=== PATIENT | male | born 1950 | race Caucasian/White ===

== ENCOUNTER → 2020-10-23 15:28 | Outpatient (BNVA) | payer OTHER, SELFPAY | PROVIDERS: Family Provider Electrodiagnostic Medicine; PCP Family Medicine; Visit Provider Internal Medicine Critical Care Medicine | DX: Z01.812 Encounter for preprocedural laboratory examination (principal); R91.1 Solitary pulmonary nodule | CPT/HCPCS: 87635 ==

== ENCOUNTER 2020-10-27 10:21 | Day surgery (SDC) | payer OTHER, SELFPAY ==
[2020-10-26 09:26] VITALS: BMI 26.4
[2020-10-27 10:40] VITALS: BP 135/80; PULSE 82; RESP 18; TEMP 36.6; O2SAT 93
--- NOTE | 2020-10-27 11:23 | ANES.PREANE2 ---
Pre-Anesthetic Assessment Pre-Anesthetic Assessment: Height/Weight: Height 1.85 m Weight 90.718 kg Temp Pulse Resp BP Pulse Ox 97.9 F 82 18 135/80 93 10/27/20 10:40 10/27/20 10:40 10/27/20 10:40 10/27/20 10:40 10/27/20 10:40 Preop Diagnosis: Mediastinal lymphadenopathy Proposed Procedure: Operation Date: 10/27/20 12:00 Proposed Procedures p Ebus [id number] R91.1(Not Applicable) - Raf Ingram MD Was Beta Mike taken within 24 hours: N/A Last intake: Intake Last Liquid Date 10/26/20 Last Liquid Time 21:00 Last Solid Date 10/26/20 Last Solid Time 18:00 Social: Social History: Alcohol (H/o ETOH abuse) and Tobacco (h/o smoking) Exam: Pre-Anes Outpt Exam: alert, oriented x 3, clear to auscultation bilaterally and regular rate & rhythm Airway: Submandibular: WNL Cervical ROM: WNL MP: 2 Additional comments: upper edentulous, missing several on lower Pulmonary: Pulmonary: COPD Comments: lung CA GI: GI: GERD Anesthetic Plan: ASA status: 3 Anesthesia: General Risk of > 500 ml blood loss (7ml/kg in children): No PFSH Anesthesia PFSH: Medical History (Updated 09/07/20 @ 13:20 by Raf Ingram MD) GERD (gastroesophageal reflux disease) Hyperlipemia Lung nodule Surgical History H/O eye surgery Family History Other Cancer Social History Smoking and tobacco status: former smoker Quit status (tobacco): has quit using tobacco Year quit tobacco: 2006 - Hx of 2PPD x 40Y Second hand smoke exposure: No Alcohol intake: never Lives independently: Yes Household members: spouse Marital status: Current occupational status: retired History of recent travel: No Current gender identity: Male Data Anesthesia Cardiac Studies: No Data to Display
[2020-10-27] MEDS: sodium chloride 0.9% 1,000 ML 30 ML IV (12:22)
--- NOTE | 2020-10-27 12:32 | W.PM.OPSFHP ---
Same Day Surgery H&P Indication for Procedure/HPI DATE OF PROCEDURE: October 27, 2020 CHIEF COMPLAINT/INDICATIONFOR SURGICAL PROCEDURE: PET Positive midsternal hilar lymphadenopathy PREOP DIAGNOSIS: Mediastinal lymphadenopathy PLANNED PROCEDRUE: Bronchoscopy with inspection of the airway, possible endobronchial biopsies, bronchoalveolar lavage, endobronchial ultrasound-guided transbronchial needle aspiration of lymph nodes and control of bleeding Operation Date: 10/27/20 12:00 Proposed Procedures p Ebus [id number] R91.1(Not Applicable) - Raf Ingram MD Is a 70-year-old gentleman that I had evaluated in the office for lung nodule. The patient had a recent PET scan performed which revealed PET positive hilar and mediastinal lymphadenopathy. Medications/Allergies* Home Medications Medication Instructions Recorded Confirmed Type epinephrine 0.3 mg/0.3 mL 0.3 mg IM Q10M PRN 08/03/20 10/26/20 History injection, auto-injector omeprazole 20 mg capsule,delayed 20 mg PO DAILY 08/03/20 10/27/20 History release rosuvastatin 40 mg tablet 20 mg PO DAILY tab 08/03/20 10/27/20 History Allergies/Adverse Reactions Allergy/AdvReac Type Severity Reaction Status Date / Time codeine Allergy Severe ADR-Nausea Verified 10/27/20 10:31 insect venom Allergy Severe ALGY-Swell Verified 10/27/20 10:31 Lip/Tongue/Throat Sulfa (Sulfonamide Allergy Severe ALGY-Rash Verified 10/27/20 10:31 Antibiotics) Current Medications: Generic Name Dose Route Start Last Admin Trade Name Freq PRN Reason Stop Dose Admin Sodium Chloride 1,000 mls @ 30 mls/hr 10/27/20 11:00 10/27/20 12:22 Sodium Chloride 0.9% IV 10/28/20 10:59 30 mls/hr .Q24H HAILY Administration Pertinent History/Comorbid Conditions* Medical History (Updated 09/07/20 @ 13:20 by Raf Ingram MD) GERD (gastroesophageal reflux disease) Hyperlipemia Lung nodule Surgical History (Updated 08/03/20 @ 12:19 by Raf Ingram MD) H/O eye surgery Family History (Updated 08/03/20 @ 11:36 by Jane Colmenares LPN) Cancer Social History Smoking and tobacco status: former smoker Quit status (tobacco): has quit using tobacco Year quit tobacco: 2006 - Hx of 2PPD x 40Y Second hand smoke exposure: No Alcohol intake: never Lives independently: Yes Household members: spouse Marital status: Current occupational status: retired History of recent travel: No Current gender identity: Male Pertinent Exam Findings alert, oriented x 3, clear to auscultation bilaterally and regular rate & rhythm Recommendations Surgery/Procedure today Coding Level of Care Code Acute Automation And Controls Supervisor for Amaya Doss
[2020-10-27 13:53] VITALS: BP 120/63; PULSE 73; RESP 18; TEMP 36.6; O2SAT 92
[2020-10-27 13:55] VITALS: PULSE 70; RESP 12; O2SAT 96
[2020-10-27 14:00] VITALS: BP 122/75; PULSE 74; RESP 15; TEMP 36.6; O2SAT 95
--- NOTE | 2020-10-27 14:02 | PM.OP ---
Operative Report Date of procedure: October 27, 2020 Pre-op Diagnosis: Mediastinal lymphadenopathy Post-op diagnosis: same Brief History: This is a 70-year-old gentleman with PET positive medicine unhygienic adenopathy coming in for bronchoscopic evaluation. Procedure: Name of the procedure: Bronchoscopy with inspection of the airway, bronchoalveolar lavage, endobronchial biopsies, endobronchial ultrasound-guided transbronchial needle aspiration of lymph nodes and control of bleeding. Indication: PET positive medicine hilar lymphadenopathy Anesthesia: General anesthesia. Local anesthesia: The vocal cords, trachea, armando and the right and left mainstem bronchi were anesthetized with 1% lidocaine, 3 mL. Description of the procedure: The procedure was explained to the patient and the consent was obtained. The patient was brought to the OR. The patient underwent laryngeal mask airway placement for general anesthesia. Following induction of general anesthesia, the bronchoscope was advanced through the LMA. The vocal cords appeared normal. The vocal cords were anesthetized with 1% lidocaine, 3 mL of lidocaine was used. The lower trachea appeared to be mildly erythematous, no endotracheal lesion was seen. The armando was sharp. The armando, the right and left mainstem bronchi are anesthetized with 1% lidocaine. In a systematic manner bilateral bronchial tree was then examined. The bronchoscope was advanced into the left mainstem bronchus. The left upper lobe, lingula and left lower lobe bronchi were examined up to the third subsegmental level and no abnormalities were identified. There is no endobronchial lesion, active bleeding or mucous plug. The bronchoscope was then introduced into the right mainstem bronchus. The right upper lobe, and right middle lobe up to the third subsegmental level and no abnormalities were identified. A smooth endobronchial lesion was identified at the entrance of the anterior segment of the right lower lobe. There was mild airway anthracosis throughout. Bronchoalveolar lavage was performed from the medial segment of the right middle lobe. 60 mL of saline was instilled, fluid return was 15 mL. The fluid was cloudy. Endobronchial biopsies were performed from right lower lobe. The endobronchial ultrasound was introduced through the ET tube. Mediastinal and hilar lymphadenopathy was identified with the ultrasound. The fine-needle aspiration was performed from station 7 lymph node. Samples: 1. Bronchoalveolar lavage specimen was sent for Gram stain and culture, fungal stain and culture, AFB stain and culture. 2. The endobronchial biopsies are sent for histopathology. 3. The transbronchial needle aspiration of the aforementioned lymph node group was sent for histopathology. 1 sample was also sent for AFB and fungal culture. Complications: There was no immediate complications. Immediate pathologic evaluation revealed granulomatous inflammation. There is no evidence of malignancy.
[2020-10-27 14:50] VITALS: BP 100/65; PULSE 72; RESP 18
[2020-10-27 15:22] VITALS: BP 122/75; PULSE 78; RESP 18; TEMP 36.6; O2SAT 95
--- NOTE | 2020-10-27 16:28 | ANE.PACU2 ---
Inpatient post-anesthesia follow up: Airway intact: Yes Vital signs: Temperature 97.8 F Pulse Rate 78 Respiratory Rate 18 Blood Pressure 122/75 Pulse Oximetry 95 Oxygen Delivery Me thod Room Air Oxygen Flow Rate 6 Fraction of Inspir ed Oxygen Hydration adequate: Yes Nausea and vomiting: No Pain level: 1 Mental status: Baseline
== END 2020-10-27 15:10 | disposition home or self-care (01) ==
PROVIDERS: PCP Family Medicine; Visit Provider Internal Medicine Critical Care Medicine
PROC: BB4BZZZ Ultrasonography of Pleura (ICD-10-PCS; principal; 2020-10-27 12:00)
DX: R59.1 Generalized enlarged lymph nodes (principal); R91.1 Solitary pulmonary nodule; J44.9 Chronic obstructive pulmonary disease, unspecified; Z85.118 Personal history of other malignant neoplasm of bronchus and lung; K21.9 Gastro-esophageal reflux disease without esophagitis; E78.5 Hyperlipidemia, unspecified; Z87.891 Personal history of nicotine dependence
CPT/HCPCS: 31625; 31627; 80500; 87015; 87070; 87077; 87102; 87116; 87176; 87205; 87206; 87801; 88305; J1100; J2405; J3010; J3490; J7030

== ENCOUNTER 2020-12-18 09:34 | Outpatient (CLI) | payer MEDICARE, OTHER, SELFPAY ==
--- NOTE | 2020-12-18 11:22 | ECG_ITS ---
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 Measurements Intervals [place] Rate: 68 P: 68 RI: 190 QRS: -32 QRSD: 104 T: 33 QT: 363 QTc: 388 Interpretive Statements SINUS RHYTHM MARKED LEFT AXIS DEVIATION [QRS AXIS < -30] INTERPRETATION BASED ON A DEFAULT AGE OF 40 YEARS No previous ECG available for comparison Electronically Signed On 12-20-2020 10:55:29 CDT by Jennifer Zhang M.D. [id number] f
== END 2020-12-18 09:35 | disposition home or self-care (01) ==
LOC: RT 09:43
PROVIDERS: PCP Family Medicine; Visit Provider Specialist
DX: C44.01 Basal cell carcinoma of skin of lip (principal); R94.31 Abnormal electrocardiogram [ECG] [EKG]
CPT/HCPCS: 93005

== ENCOUNTER 2020-12-30 13:36 | Outpatient (CLI) | payer MEDICARE, OTHER, SELFPAY | END 2020-12-30 13:37 | disposition home or self-care (01) | LOC: LAB 13:39 | PROVIDERS: PCP Family Medicine; Visit Provider Specialist | DX: C44.1191 Basal cell carcinoma of skin of left upper eyelid, including canthus (principal); K13.0 Diseases of lips | CPT/HCPCS: 88304; 88305 ==

== ENCOUNTER 2021-08-03 13:24 | Outpatient (CLI) | payer MEDICARE, OTHER, SELFPAY ==
[2021-08-03 13:34] VITALS: BP 124/74; PULSE 95; RESP 18; TEMP 36.6; O2SAT 90
--- NOTE | 2021-08-03 14:08 | PC.NURSE ---
Pt's O2 was between 89% and 93%. Emi Vital called hospitalist Dr. Perrin. He came to assess the pt. The infusion was given. Dr. Perrin ordered a pulse ox to go home with the pt. This was obtained by Emi from the ED.
[2021-08-03 14:10] VITALS: BP 128/74; PULSE 84; RESP 20; O2SAT 89
[2021-08-03 15:12] VITALS: BP 120/72; PULSE 85; RESP 20; TEMP 38; O2SAT 90
== END 2021-08-03 13:25 | disposition home or self-care (01) ==
PROVIDERS: PCP Electrodiagnostic Medicine; Visit Provider Electrodiagnostic Medicine
DX: U07.1 COVID-19 (principal)
CPT/HCPCS: 96365

== ENCOUNTER 2021-08-03 20:10 | Emergency (ER) | payer MEDICARE, OTHER, SELFPAY ==
--- NOTE | 2021-08-03 20:14 | XRR_ITS ---
PROCEDURE INFORMATION: Exam: XR Chest Exam date and time: 08/03/2021 8:14 PM Age: 70 years old Clinical indication: Shortness of breath; Additional info: SOB TECHNIQUE: Imaging protocol: XR of the chest. Views: 1 view. COMPARISON: CT chest w con* [id number] 08/04/2020 10:34 AM FINDINGS: Lungs: Decreased inspiration. Interval development of interstitial and alveolar opacities in the periphery of the lungs bilaterally, more pronounced in the lower lobes. Pleural spaces: No pleural effusion. No pneumothorax. Heart/Mediastinum: Stable mild enlargement of the cardiac silhouette. Mediastinal contours are unremarkable. Bones/joints: Unremarkable for age. XR/XR chest 1V portable [id number] IMPRESSION: 1. Decreased inspiration. Interval development of interstitial and alveolar opacities in the periphery of the lungs bilaterally, more pronounced in the lower lobes. Findings are suspicious for pneumonia, including atypical and viral organisms. 2. Incidental/nonacute findings are listed in the report. Radiation Dose CTDIVOL = (mGy): DLP = (mGy-cm)
[2021-08-03 20:35] VITALS: BP 147/77; PULSE 98; RESP 18; TEMP 37.3; O2SAT 92; BMI 36.9
[2021-08-03 21:12] LABS: ABG PCO2 39.7 mmHg (35-45); ABG PH Result 7.48 (7.35-7.45); Arterial Blood Gas Hematocrit 46.8 % (42-52); Base Excess ABG 5.2 mmol/L (-2.0-2.0); Blood Gas Allen Test Pos; Blood Gas Sample Site Radial, left; Blood Gas Sample Type Arterial; HCO3 ABG 29.2 mmol/L (22-26); Oxygen Device NC; PO2 ABG 71.4 mmHg (80.0-100.0)
--- NOTE | 2021-08-03 21:55 | ED_ITS ---
HPI - General Adult General: Chief complaint: Shortness of Breath/Dyspnea Stated complaint: Covid + O2 Levels Low Time Seen by Provider: 08/03/21 21:00 History of Present Illness: HPI narrative: CC: Shortness of breath, fever and generalized weakness HPI: This is a [70]yo patient w/ hx of COPD presenting to the ED with malaise, generalized weakness, cough and dyspnea since coming down with COVID on Monday (6 days ago). Today, patient received medical antibody treatments reports continues to have low oxygen sat and came to the emergency room for evaluation. Since onset of symptoms, has had some shortness of breath and decreased PO intake. NO recent travel. Endorses no sick contacts around. Denies vomiting/diarrhea. Denies chest pain, diaphoresis, other GI or complaints. Denies any pleuritic chest pain, recent surgery/immobilization/travel, or hematemesis or hx of VTE in the past. Onset: 6 days ago Duration: ongoing for the last 6 days Location: home Severity: moderate Review of Systems Narrative: Constitutional: +subjective fever, +generalized weakness HEENT: No vision changes CV: No chest pain, no palpitations PULM: +cough, +dyspnea. GI: No abdominal pain, no N/V/D. : No dysuria MSKEL: No muscle pain SKIN: No new rashes, no lesions. NEURO: No headache, no focal weakness. HEME: No visible bruises PSYCH: Normal mood PFSH ED PFSH: Medical History (Updated 08/03/21 @ 21:31 by Jarret Norton MD) GERD (gastroesophageal reflux disease) Hyperlipemia Lung nodule Surgical History H/O eye surgery Family History Other Cancer Social History Smoking and tobacco status: former smoker Quit status (tobacco): has quit using tobacco Year quit tobacco: 2005 - Hx of 2PPD x 40Y Second hand smoke exposure: No Alcohol intake: never Lives independently: Yes Household members: spouse Marital status: Current occupational status: retired History of recent travel: No Current gender identity: Male Physical Exam Narrative: EXAM NARRATIVE: Head: Atraumatic Eyes: PERRL, conjunctiva without injection ENT: Mucous membrane moist NECK: Supple without lymphadenopathy LUNGS: Coarse lung sounds, tachypnea, no crackles/wheezes/rhonchi on exam CV: RRR ABDOMEN: Soft, nontender EXTREMITY: Normal ROM SKIN: No rash or erythema NEURO: Awake and alert. No focal motor deficits. PSYCH: Normal mood and affect. Course Vital Signs: Vital signs: Vital Signs Temperature 99.1 F 08/03/21 20:35 Pulse Rate 91 08/03/21 22:13 Respiratory Rate 20 H 08/03/21 22:13 Blood Pressure 150/88 08/03/21 22:13 Pulse Oximetry 85 L 08/03/21 22:34 MDM - General Adult MDM Narrative: Medical decision making narrative: [70]yo patient presenting to the ED with shortness of breath, cough, and malaise concerning for pneumonia with findings of fever, coarse breath sounds, hypxoemia in the setting of a known covid diagnosis.. Workup today includes XR chest Defer lab work at this time given that the patient is well appearing with stable vital signs and without recent hospitalization or care facility stay. Given History, Exam, and Workup presentation most consistent with pneumonia.Presentation not consistent with PE, COPD exacerbation, Pneumothorax, TB, Atypical ACS, Esophageal Rupture, Toxic Exposure, Foreign Body Airway Obstruction. Workup: CXR Chest, covid labs Intervention: Tylenol 1gram, PO challenge, serial reassessment, oxygen, decadron, home oxygen [10:24pm] On reassessment, XR findings of ground-glass opacity. Findings consistent with COVID. Afebrile currently. Patient continues to sat at 94% on 5L oxygen. Given concerns for possible respiratory decompensation, I have offered patient admission for serial/close observation in the emergency room. At [10:30pm], patient declined admission citing strong desire to go home on home oxygen. I have discussed the risks of leaving hospital today including risks of sudden pulmonary decompensation leading to severe respiratory distress and even . Patient verbalizes understanding the consequence of the risks of leaving the hospital today and alternative including staying for serial observation. Given patient's strong desire to go home, I have offered patient outpatient oxygen tank/supply and portable pulse ox with proper instruction to use at home. Patient agrees to monitor oxygen saturation and to come back to the ED if there is any drops in pulse ox reading despite oxygen use. In addition, I have given patient strict follow up with Dr. Castillo in 24-48 hrs for reevalutaion. Patient verbalizes understanding of all components of our discussion today and reassures me of follow up with PCP and close monitoring. Given pulse ox to use and given instruction return if worse. Patient will go home with portable home O2 at 5L. Disposition: Discharge. Patient is given strict return precautions for any worsening dypsnea, changes in pulse ox numbers, any worsening fatigue, dehydration, generalized weakness, altered mental status, or any new or concerning issues. Lab Data: Labs: Lab Results 08/03/21 08/03/21 08/03/21 20:14 22:00 22:00 WBC 12.9 10^3/uL H 10 ^3/uL (4.0-10.0) RBC 5.37 10^6/uL H 10 ^6/uL (4.1-5.3) Hgb 15.4 g/dL g/dL (11.7-16.6) Hct 47.7 % % (42.0-52.0) MCV 88.8 fl fl (80-94) MCH 28.7 pg pg (28.0-34.0) MCHC 32.3 g/dL g/dL (30.0-36.0) RDW 13.3 % % (12.1-15.1) Plt Count 156 10^3/cmm 10^3 /cmm (130-400) MPV 9.5 fL fL (7.4-10.4) Neut % (Auto) 83.0 % % Lymph % (Auto) 11.8 % % [place] % (Auto) 4.8 % % Eos % (Auto) 0.0 % % Baso % (Auto) 0.2 % % Neut # (Auto) 10.70 10^3/uL H 1 0^3/uL (1.8-7.7) Lymph # (Auto) 1.5 10^3/uL 10^3/ uL (0.8-4.8) [place] # (Auto) 0.6 10^3/uL 10^3/ uL (0.2-0.9) Eos # (Auto) 0.0 10^3/uL 10^3/ uL (0.0-0.8) Baso # (Auto) 0.0 10^3/uL 10^3/ uL (0.0-0.1) Nucleated RBC % (a uto) 0 % % Nucleated RBCs # 0.0 /100WBC /100W BC Specimen Type Arterial Sample Site Radial, left ABG pH 7.48 H (7.35-7.45) ABG pCO2 39.7 mmHg mmHg (35-45) ABG pO2 71.4 mmHg L mmHg (80.0-100.0) ABG HCO3 29.2 mmol/L H mmo l/L (22-26) ABG Base Excess 5.2 mmol/L H mmol /L (-2.0-2.0) Jim Test Pos Hematocrit 46.8 % % (42-52) O2 Delivery Device Nc O2 Liters/Min 3.0 % % Public Health Veterinarian ID [email or web address] Sodium 136 mmol/L mmol/L (136-145) Potassium 4.0 mmol/L mmol/L (3.5-5.1) Chloride 99 mmol/L mmol/L (98-107) Carbon Dioxide 22 mmol/L mmol/L (22-29) Anion Gap 19.0 (5-19) BUN 14 mg/dL mg/dL (8-23) Creatinine 0.7 mg/dL mg/dL (0.7-1.2) GFR Calculation Not Reportable Glucose 104 mg/dL mg/dL (65-115) Calculated Osmolal ity 283 mOsm/kg L mOs m/kg (285-295) Lactic Acid Calcium 7.8 mg/dL L mg/dL (8.5-10.5) Total Bilirubin 0.4 mg/dL mg/dL (0.15-1.2) AST 32 U/L U/L (0-40) ALT 26 U/L U/L (0-41) Alkaline Phosphata se 64 IU/L IU/L (40-130) C-Reactive Protein 57.0 mg/L H mg/L (0.0-4.9) NT-Pro-B Natriuret Pep 80 pg/mL pg/mL (0-125) Total Protein 6.3 g/dL L g/dL (6.6-8.7) Albumin 3.5 g/dL g/dL (3.5-5.2) Globulin 2.8 g/dL g/dL (1.3-4.6) Procalcitonin 0.06 ng/mL ng/mL (0-0.5) 08/03/21 22:00 WBC RBC Hgb Hct MCV MCH MCHC RDW Plt Count MPV Neut % (Auto) Lymph % (Auto) [place] % (Auto) Eos % (Auto) Baso % (Auto) Neut # (Auto) Lymph # (Auto) [place] # (Auto) Eos # (Auto) Baso # (Auto) Nucleated RBC % (a uto) Nucleated RBCs # Specimen Type Sample Site ABG pH ABG pCO2 ABG pO2 ABG HCO3 ABG Base Excess Jim Test Hematocrit O2 Delivery Device O2 Liters/Min Public Health Veterinarian ID Sodium Potassium Chloride Carbon Dioxide Anion Gap BUN Creatinine GFR Calculation Glucose Calculated Osmolal ity Lactic Acid 1.4 mmol/L mmol/L (0.5-2.2) Calcium Total Bilirubin AST ALT Alkaline Phosphata se C-Reactive Protein NT-Pro-B Natriuret Pep Total Protein Albumin Globulin Procalcitonin Imaging Data^: Other Imaging: Radiologist's impression: [address] [id number] ReportSigned Patient: Khushi Pond #: [id number]: 1950Acct#:[id number]/Sex: 70 / MADM Date: 08/03/21Loc: ERRoom/Bed:Attending Dr: Ordering Provider/Ordering MD: Marcia Alvarez MD Date of Service: 08/03/21 Procedure(s): XR chest 1V portable [id number] Accession Number(s): [id number] Report Number: [id number] PROCEDURE INFORMATION: Exam: XR Chest Exam date and time: 08/03/2021 8:14 PM Age: 70 years old Clinical indication: Shortness of breath; Additional info: SOB TECHNIQUE: Imaging protocol: XR of the chest. Views: 1 view. COMPARISON: CT chest w con* [id number] 08/04/2020 10:34 AM FINDINGS: Lungs: Decreased inspiration. Interval development of interstitial and alveolar opacities in the periphery of the lungs bilaterally, more pronounced in the lower lobes. Pleural spaces: No pleural effusion. No pneumothorax. Heart/Mediastinum: Stable mild enlargement of the cardiac silhouette. Mediastinal contours are unremarkable. Bones/joints: Unremarkable for age. XR/XR chest 1V portable [id number] IMPRESSION: 1. Decreased inspiration. Interval development of interstitial and alveolar opacities in the periphery of the lungs bilaterally, more pronounced in the lower lobes. Findings are suspicious for pneumonia, including atypical and viral organisms. 2. Incidental/nonacute findings are listed in the report. Radiation Dose CTDIVOL = (mGy): DLP = (mGy-cm) Dictated By:Sabra David MDSigned By:Sabra David MDSigned Date/Time:08/03/21 2203DD/ 13 Discharge Plan Discharge Patient Disposition: Home Clinical Impression: 2019 novel coronavirus-infected pneumonia (NCIP), Cough, Dyspnea Condition: Stable Prescriptions: New acetaminophen 500 mg tablet 500 mg PO Q6H PRN (Reason: pain) 5 Days Qty: 20 RF: 0 No Action rosuvastatin 40 mg tablet 20 mg PO DAILY RF: 0 epinephrine 0.3 mg/0.3 mL auto-injector 0.3 mg IM Q10M PRN (Reason: Allergic Reaction) RF: 0 omeprazole 20 mg capsule,delayed release(DR/EC) 20 mg PO DAILY RF: 0 tamsulosin 0.4 mg Capsule 0.4 mg PO DAILY RF: 0 Discharge Orders: Discharge ED (Routine); Ordered 08/03/21 Ordered By: Jarret Norton Other Ambulatory Orders: DME: Oxygen (Order) Location: None Selected Ordered By: Jarret Norton Referrals: Silviano Castillo DO [Primary Care Provider] - Discharge Diet: Advance as tolerated Discharge Activity: Resume usual activity Patient Instructions: COVID-19 (Coronavirus Disease 2019) (ED) Activity Restrictions/Additional Instructions: Come back to the emergency room if your symptoms worsen, have any shortness of breath, fever/chills, dehydration, inability tolerate p.o., any difficulty breathing, or any new or concerning complaints. Please return the emergency room if your pulse ox reads less than 88% on 5L of oxygen setting. Please use your home oxygen. Follow-up with Dr. Castillo in the next 48 to 72 hours for reassessment. Come back to the emergency room if there is any new or concerning complaints Coding Level of Care Code ED Application Design Engineer for Amaya Doss
[2021-08-03 22:08] LABS: Basophils % 0.2 %; Hematocrit 47.7 % (42.0-52.0); Hemoglobin 15.4 g/dL (11.7-16.6); Lymphocytes # 1.5 10^3/uL (0.8-4.8); Lymphocytes % 11.8 %; Mean Corpuscular HGB Conc 32.3 g/dL (30.0-36.0); Mean Corpuscular Hemoglobin 28.7 pg (28.0-34.0); Mean Corpuscular Volume 88.8 fl (80-94); Mean Platelet Volume 9.5 fL (7.4-10.4); Monocytes # 0.6 10^3/uL (0.2-0.9); Monocytes % 4.8 %; Nucleated Red Blood Cells % 0 %; Platelet Count 156 10^3/cmm (130-400); Red Blood Count 5.37 10^6/uL (4.1-5.3); Red Cell Distribution Width 13.3 % (12.1-15.1); White Blood Count 12.9 10^3/uL (4.0-10.0)
[2021-08-03 22:13] VITALS: BP 150/88; PULSE 91; RESP 20; O2SAT 94
[2021-08-03 22:29] LABS: Lactic Sepsis W/Reflex 1.4 mmol/L (0.5-2.2)
[2021-08-03 22:34] VITALS: O2SAT 85
[2021-08-03 22:41] LABS: NT Pro B Type Natriuretic Pept 80 pg/mL (0-125); Procalcitonin 0.06 ng/mL (0-0.5)
[2021-08-03 22:52] LABS: Alanine Aminotransferase 26 U/L (0-41); Albumin Level 3.5 g/dL (3.5-5.2); Alkaline Phosphatase 64 IU/L (40-130); Aspartate Amino Transferase 32 U/L (0-40); Blood Urea Nitrogen 14 mg/dL (8-23); Calcium 7.8 mg/dL (8.5-10.5); Carbon Dioxide 22 mmol/L (22-29); Chloride 99 mmol/L (98-107); Globulin 2.8 g/dL (1.3-4.6); Glucose 104 mg/dL (65-115); Osmolality Calculated 283 mOsm/kg (285-295); Sodium 136 mmol/L (136-145); Total Bilirubin 0.4 mg/dL (0.15-1.2); Total Protein 6.3 g/dL (6.6-8.7)
[2021-08-03 23:24] VITALS: BP 149/78; PULSE 94; RESP 20; O2SAT 94
== END 2021-08-03 23:28 | disposition home or self-care (01) ==
PROVIDERS: Emergency Medicine; Emergency Provider Emergency Medicine; PCP Electrodiagnostic Medicine
DX: U07.1 COVID-19 (principal); J12.82 Pneumonia due to coronavirus disease 2019; E78.5 Hyperlipidemia, unspecified; Z87.891 Personal history of nicotine dependence
CPT/HCPCS: 36600; 71045; 80053; 82803; 83605; 83880; 84145; 85025; 86140; 87040; 96365; 99283

== ENCOUNTER → 2022-12-15 10:29 | Outpatient (BNVA) | payer OTHER, SELFPAY | PROVIDERS: PCP Electrodiagnostic Medicine; Visit Provider Internal Medicine Pulmonary Disease | DX: R91.1 Solitary pulmonary nodule (principal); J43.9 Emphysema, unspecified; L92.9 Granulomatous disorder of the skin and subcutaneous tissue, unspecified; Z87.891 Personal history of nicotine dependence | CPT/HCPCS: 99214 ==

== ENCOUNTER 2023-01-04 12:37 | Outpatient (CLI) | payer OTHER, SELFPAY ==
[2023-01-04 12:55] VITALS: PULSE 91; RESP 18; O2SAT 96
[2023-01-04] MEDS: albuterol 2.5 mg/3 mL Neb INHALATION (12:55)
[2023-01-04 13:00] VITALS: PULSE 88
[2023-01-04 13:15] VITALS: BP 138/90; BP 159/95
== END 2023-01-04 12:38 | disposition home or self-care (01) ==
LOC: RT 12:40
PROVIDERS: PCP Electrodiagnostic Medicine; Visit Provider Internal Medicine Pulmonary Disease
DX: R06.02 Shortness of breath (principal)
CPT/HCPCS: 36415; 94060; 94618; 94726; 94729; J7613

== ENCOUNTER 2023-01-07 05:57 | Outpatient (CLI) | payer OTHER, SELFPAY ==
--- NOTE | 2023-01-07 10:30 | PETR_ITS ---
PROCEDURE INFORMATION: Exam: PET/CT Skull Base to Mid-thigh Exam date and time: 01/07/2023 10:45 AM Age: 72 years old Clinical indication: Condition or disease; Condition/disease: Lung nodule LABS AND CLINICAL REPORTS: Glucose: 96 mg/dl Treatment strategy for malignancy (PET staging): Initial Staging (PI) TECHNIQUE: Imaging protocol: Following at least four-hour fasting and following the injection of radiopharmaceutical, low dose CT images were obtained. Then, PET images were obtained. Attenuation corrected images were constructed using the CT scan. Fused images of PET and CT were reviewed. The standardized uptake values (SUV) reported below are maximum values within a region of interest, expressed in gm/ml. Exam includes orbital meatal line to mid-thigh. Radiopharmaceutical: 15.86 mCi F-18 FDG (Fluorodeoxyglucose), IV. Time of imaging post radiopharmaceutical administration: 1 hour Injection site: Left hand COMPARISON: PT PET Scan 10/03/2020 11:01 AM FINDINGS: Limitations: Metallic artifact in the pelvis related to a left hip prosthesis. Brain: Visualized brain has normal physiologic uptake. Paranasal sinuses: There is mild non radiotracer avid mucosal thickening in the left maxillary sinus. Pharynx: No abnormal uptake. Larynx: No abnormal uptake. Lungs, pleura and trachea: No abnormal uptake. Mild bilateral centrilobular emphysematous changes are present. There are calcified granulomas in the bilateral lower lobes.Mild dependent streaky density in the lungs is consistent with atelectasis. In the anterior medial right upper lobe (previously described as right middle lobe on the prior PET-CT report), a solid noncalcified 1.0 x 0.8 cm nodule on series 3, image 59 is not radiotracer avid. This nodule is similar in size compared with 10/28/2022 and the prior PET-CT. A nodule on the major fissure on the prior CT of 10/28/2022 is not definitively identified on the current exam. A was however present on the prior PET-CT with a similar size and lack of radiotracer uptake. Heart: Normal physiologic uptake. Mediastinal space: No abnormal uptake. Liver: No abnormal uptake. Gallbladder and bile ducts: No abnormal uptake. A stone in the gallbladder is noted. Pancreas: No abnormal uptake. Spleen: No abnormal uptake. Calcified granulomas in the spleen are present. Adrenal glands: No abnormal uptake. Kidneys and ureters: Normal physiologic uptake. Stomach and bowel: No abnormal uptake. There are scattered colonic diverticula. Vasculature: No abnormal uptake. There are diffuse atherosclerotic changes. Lymph nodes: Radiotracer avid mediastinal and bilateral hilar lymph nodes are similar in size compared to the previous examinations with decreased uptake. Examples: Inferior pretracheal space to the right of midline measuring 1.8 x 1.2 cm on series 3, image 54, SUV max 5.8 (previously 9.3); in the aortopulmonary window posteriorly measuring 1.6 x 1.1 cm on series 3, image 55, SUV max 6.1 (previously 6.0); in the right hilar region containing a punctate central calcification measuring 1 cm on series 3, image 59, SUV max 4.7 (previously 7.2) and in the left hilar region measuring approximately 1.3 cm in diameter on series 3, image 59, SUV max 6.3 (previously 7.8). These lymph nodes appears similar in size compared with 10/28/2022 and the prior PET-CT. Bones/joints: No abnormal uptake in the visualized axial and appendicular skeleton. Postoperative changes of left hip arthroplasty are noted. An ovoid non radiotracer avid sclerotic density in the left pubic bone is noted compatible with a benign bone island. [id number] diffuse degenerative vertebral body spondylosis is noted. Soft tissues: No abnormal uptake in the visualized head, neck, chest, abdomen, pelvis, and extremities. METRICS: Mediastinal blood pool: SUV max 2.5 [facility] [id number] IMPRESSION: 1. Similar size of a noncalcified right upper lobe nodule since at least the prior PET-CT of 10/03/2020 which continues to be non radiotracer avid. A second noncalcified nodule noted on the CT chest of 10/28/2022 was present on the prior PET-CT and was non radiotracer avid, not definitively assessed on the current study possibly related to motion artifact. No new nodules are identified. Assessment of small nodules can be limited by PET-CT. 2. Similar size of mildly prominent mediastinal and bilateral hilar lymph nodes which demonstrate persistent but decreased uptake suggestive of partially resolved inflammatory or infectious involvement. Neoplastic involvement cannot be entirely excluded. 3. Colonic diverticulosis. 4. Old granulomatous changes. 5. Cholelithiasis. 6. Additional nonurgent findings as detailed above.
== END 2023-01-07 05:58 | disposition home or self-care (01) ==
LOC: RAD 01-09 05:57
PROVIDERS: PCP Electrodiagnostic Medicine; Visit Provider Internal Medicine Pulmonary Disease
DX: R91.1 Solitary pulmonary nodule (principal)
CPT/HCPCS: 78815; A9552

== ENCOUNTER → 2023-02-24 10:51 | Outpatient (BNVA) | payer OTHER, SELFPAY | PROVIDERS: PCP Electrodiagnostic Medicine; Visit Provider Internal Medicine Pulmonary Disease | DX: R91.1 Solitary pulmonary nodule (principal); J43.9 Emphysema, unspecified; L92.9 Granulomatous disorder of the skin and subcutaneous tissue, unspecified; Z87.891 Personal history of nicotine dependence | CPT/HCPCS: 99214 ==

== ENCOUNTER → 2023-06-26 14:46 | Outpatient (BNVA) | payer OTHER, SELFPAY | PROVIDERS: PCP Electrodiagnostic Medicine; Visit Provider Internal Medicine Pulmonary Disease | DX: J43.9 Emphysema, unspecified (principal); R91.8 Other nonspecific abnormal finding of lung field; I89.8 Other specified noninfective disorders of lymphatic vessels and lymph nodes; Z87.891 Personal history of nicotine dependence | CPT/HCPCS: 99214 ==

== ENCOUNTER → 2023-12-06 13:05 | Outpatient (BNVA) | payer OTHER, SELFPAY | PROVIDERS: PCP Electrodiagnostic Medicine; Visit Provider Dermatology | DX: D48.5 Neoplasm of uncertain behavior of skin (principal); L57.0 Actinic keratosis; L85.3 Xerosis cutis; L82.1 Other seborrheic keratosis; D23.5 Other benign neoplasm of skin of trunk; Z85.828 Personal history of other malignant neoplasm of skin | CPT/HCPCS: 11102; 17000; 99203 ==

== ENCOUNTER → 2023-12-25 12:55 | Outpatient (BNVA) | payer OTHER, SELFPAY | PROVIDERS: PCP Electrodiagnostic Medicine; Visit Provider Internal Medicine Pulmonary Disease | DX: R91.1 Solitary pulmonary nodule (principal); J43.9 Emphysema, unspecified; L92.9 Granulomatous disorder of the skin and subcutaneous tissue, unspecified; Z87.891 Personal history of nicotine dependence | CPT/HCPCS: 99214 ==

== ENCOUNTER 2024-01-09 12:34 | Outpatient (CLI) | payer OTHER, SELFPAY ==
--- NOTE | 2024-01-09 07:47 | PETR_ITS ---
PROCEDURE INFORMATION: Exam: PET/CT Skull Base to Mid-thigh Exam date and time: 01/09/2024 1:06 PM Age: 73 years old Clinical indication: Condition or disease; Condition/disease: Pulmonary nodules; Additional info: F/u nodules LABS AND CLINICAL REPORTS: Glucose: 84 mg/dl Treatment strategy for malignancy (PET staging): Initial Staging (PI) TECHNIQUE: Imaging protocol: Following at least four-hour fasting and following the injection of radiopharmaceutical, low dose CT images were obtained. Then, PET images were obtained. Attenuation corrected images were constructed using the CT scan. Fused images of PET and CT were reviewed. The standardized uptake values (SUV) reported below are maximum values within a region of interest, expressed in gm/ml. Exam includes orbital meatal line to mid-thigh. Radiopharmaceutical: 10.56 mCi F-18 FDG (Fluorodeoxyglucose), IV. Time of imaging post radiopharmaceutical administration: 45 minutes Injection site: Right antecubital COMPARISON: 1. [id number] 01/07/2023 10:45 AM 2. PT PET Scan 10/03/2020 11:01 AM FINDINGS: Brain: Visualized brain has normal physiologic uptake. Pharynx: No abnormal uptake. Larynx: No abnormal uptake. Lungs, pleura and trachea: No abnormal uptake. 1.0 x 0.8 cm anterior right upper lobe nodule is stable from September 2020 and continues to show no FDG uptake. Developed 7 mm lingular nodule on axial image 97 of series 3 shows SUV max of 1.2. Just posterior to this is an area of low-level FDG uptake with SUV max of 1.[address] abnormality. Bilateral calcified granulomata. Mild bilateral atelectatic change. Heart: Normal physiologic uptake. Coronary arteries: Mild coronary artery calcification. Mediastinal space: No abnormal uptake. Liver: No abnormal uptake. Gallbladder and bile ducts: No abnormal uptake. Cholelithiasis. Pancreas: No abnormal uptake. Spleen: No abnormal uptake. Small splenic calcifications in keeping with sequela of old granulomatous disease. Adrenal glands: No abnormal uptake. Kidneys and ureters: Normal physiologic uptake. Stomach and bowel: No abnormal uptake. Colonic diverticulosis. Vasculature: No abnormal uptake. Ynhy-un-ieynxnwk systemic atherosclerotic calcification without aortic aneurysm. Lymph nodes: Redemonstrated FDG avid mediastinal and bilateral hilar lymph nodes shows stable size. Index right lower paratracheal node measures 1.8 x 1.1 cm on axial image 82 of series 3 with SUV max of 5.4, previously 5.8. Index AP window node measures 1.5 x 1.2 cm with SUV max of 4.1, previously 6.1. Index right hilar lymph node shows SUV max of 3.6, previously 4.7. Index left hilar lymph node shows SUV max 4.5, previously 6.3. Right peribronchial node measures 1.2 cm in the short axis with SUV max of 5.7, previously 6.1. Presumed lower periesophageal node shows SUV max of 4.2, previously 3.1 in January 2023 and 4.5 in September 2020. Bones/joints: No abnormal uptake in the visualized axial and appendicular skeleton. Degenerative change along the spine. Bilateral total hip arthroplasties. Stable nonaggressive sclerotic focus at the left pubic bone. Soft tissues: No abnormal uptake in the visualized head, neck, chest, abdomen, pelvis, and extremities. Small fat containing bilateral inguinal hernias. PET[facility] SUBSEQ [id number] IMPRESSION: 1. Continued stability of non FDG avid 9 mm right upper lobe nodule is compatible with benign etiology. 2. Developed 7 mm lingular nodule with associated low-level FDG uptake may be inflammatory. Recommend follow-up chest CT in 6-12 months. 3. Stable size of mediastinal and bilateral hilar lymph nodes with overall decreasing FDG uptake. 4. Additional chronic and incidental findings as above, to include atherosclerosis, colonic diverticulosis, and cholelithiasis.
== END 2024-01-09 12:35 | disposition home or self-care (01) ==
LOC: RAD 12:35
PROVIDERS: PCP Electrodiagnostic Medicine; Visit Provider Internal Medicine Pulmonary Disease
DX: R91.1 Solitary pulmonary nodule (principal); I70.90 Unspecified atherosclerosis; K57.90 Diverticulosis of intestine, part unspecified, without perforation or abscess without bleeding; K57.92 Diverticulitis of intestine, part unspecified, without perforation or abscess without bleeding
CPT/HCPCS: 78815; A9552

== ENCOUNTER → 2024-04-15 09:12 | Outpatient (BNVA) | payer OTHER, SELFPAY | PROVIDERS: PCP Electrodiagnostic Medicine; Visit Provider Nurse Practitioner Family | DX: L57.0 Actinic keratosis (principal); L85.3 Xerosis cutis; L82.1 Other seborrheic keratosis; D23.5 Other benign neoplasm of skin of trunk; Z85.828 Personal history of other malignant neoplasm of skin | CPT/HCPCS: 17000; 99213 ==

== ENCOUNTER → 2024-09-18 10:36 | Outpatient (BNVA) | payer OTHER, SELFPAY | PROVIDERS: PCP Electrodiagnostic Medicine; Visit Provider Nurse Practitioner Family | DX: L57.8 Other skin changes due to chronic exposure to nonionizing radiation (principal); Z08 Encounter for follow-up examination after completed treatment for malignant neoplasm; Z85.828 Personal history of other malignant neoplasm of skin; D48.5 Neoplasm of uncertain behavior of skin; L57.0 Actinic keratosis | CPT/HCPCS: 11102; 17000; 99213 ==

== ENCOUNTER → 2024-10-25 09:18 | Outpatient (BNVA) | payer OTHER, SELFPAY | PROVIDERS: PCP Electrodiagnostic Medicine; Visit Provider Surgery | DX: Z12.11 Encounter for screening for malignant neoplasm of colon (principal) | CPT/HCPCS: 99204 ==

== ENCOUNTER 2024-10-31 06:00 | Day surgery (SDC) | payer OTHER, SELFPAY ==
--- NOTE | 2024-10-31 05:53 | P.HPUD_ITS ---
Surgery/Procedure H&P Update DATE OF PROCEDURE: October 31, 2024 DATE H&P PERFORMED: 10/25/24 H&P UPDATE INFORMATION: I have reviewed H&P completed within last 30 days, I have examined patient prior to procedure, No changes to prior documentation and H&P is in [facility] EMR on date indicated PLANNED PROCEDURE: Operation Date: 10/31/24 07:00 Proposed Procedures p Colonoscopy 42163, G0105, Z12.11(Not Applicable) - Jordan Edwards MD
--- NOTE | 2024-10-31 05:53 | W.PM.OPSUD ---
Surgery/Procedure H&P Update DATE OF PROCEDURE: October 31, 2024 DATE H&P PERFORMED: 10/25/24 H&P UPDATE INFORMATION: I have reviewed H&P completed within last 30 days, I have examined patient prior to procedure, No changes to prior documentation and H&P is in [facility] EMR on date indicated PLANNED PROCEDURE: Operation Date: 10/31/24 07:00 Proposed Procedures p Colonoscopy 81080, G0105, Z12.11(Not Applicable) - Jordan Edwards MD
[2024-10-31 06:16] VITALS: BP 162/107; PULSE 99; RESP 17; TEMP 36.8; O2SAT 93; BMI 26.4
--- NOTE | 2024-10-31 06:22 | P.ANESASSM_ITS ---
Pre-Anesthetic Assessment Height/Weight: Height 1.85 m Weight 90.718 kg Temp Pulse Resp BP Pulse Ox O2 Del Method 98.2 F 99 17 162/107 93 Room Air 10/31/24 06:16 10/31/24 06:16 10/31/24 06:16 10/31/24 06:16 10/31/24 06:16 10/31/24 06:16 Operation Date: 10/31/24 07:00 Proposed Procedures p Colonoscopy 15664, G0105, Z12.11(Not Applicable) - Jordan Edwards MD Familial anesthetic complications: None Was Beta Mike taken within 24 hours: N/A Was Clonidine taken within 24 hours: N/A Last intake: Intake Last Liquid Date 10/30/24 Last Liquid Time 22:30 Last Solid Date 10/29/24 Last Solid Time 19:00 Social No alcohol and No tobacco Exam alert, oriented x 3, clear to auscultation bilaterally and regular rate & rhythm Airway Submandibular: within normal limits Cervical ROM: Other (Decreased ROM) Mallampati: Class II Dentition: false History/ROS No significant history except as noted and No significant complaints Pulmonary Chronic Obstructive Pulmonary Disease, Cough and Exertional Dyspnea Lung cancer CV/HEM None reported None reported Hepatic None reported GI Gastroesophageal Reflux Disease (None this morning) Metabolic Diabetes Mellitus Musc/skel Osteoarthritis/DJD and Rheumatoid Arthritis Neuropsych None reported Anesthetic Plan ASA status: 3 Anesthesia: General and MAC Risk of > 500 ml blood loss (7ml/kg in children): No Medications/Allergies Home Medications ?Medication ?Instructions ?Recorded ?Confirmed ?Last Taken ?Type epinephrine 0.3 mg/0.3 mL 0.3 mg IM Q10M PRN Allergic 08/03/20 10/31/24 Unknown History injection, auto-injector Reaction omeprazole 20 mg capsule,delayed 20 mg PO DAILY 10/31/24 10/30/24 H istory release rosuvastatin 40 mg tablet 20 mg PO DAILY 08/03/20/03/2810/30/24 History tamsulosin 0.4 mg capsule 0.4 mg PO DAILY 08/03/2110/30/24 History albuterol sulfate 90 mcg/actuation 1 inh inhalation QI D PRN Shortness 12/15/22 10/31/24 Unknown History aerosol inhaler Of Breath Or Wheezing metformin 500 mg tablet 500 mg PO DAILY 12/15/2210/29/24 History fluticasone 100 mcg-salmeterol 50 1 inh inhalation BID #60 ea 02/28/23 10/31/24 10/31/24 Rx mcg/dose blistr powdr for inhalation (Wixela Inhub) tiotropium bromide 1.25 2 puff inhalation DAILY #4 g binta 02/28/23 10/29/24 10/29/24 Rx mcg/actuation mist for inhalation (Spiriva Respimat) Allergies Allergy/AdvReac Type Severity Reaction Status Date / Time codeine Allergy Severe ADR-Nausea Verified 10/29/24 10:20 insect venom Allergy Severe ALGY-Swell Verified 10/29/24 10:20 Lip/Tongue/Throat Sulfa (Sulfonamide Allergy Severe ALGY-Rash Verified 10/29/24 10:20 Antibiotics) COUNT INCLUDES THE [facility] Anesthesia Medical History Lung nodule GERD (gastroesophageal reflux disease) Hyperlipemia Surgical History H/O eye surgery Family History Other Cancer Social History Smoking and tobacco/nicotine status: tobacco/nicotine user, details unknown Quit status (tobacco/nicotine): has quit using Year quit tobacco: 2006 - Hx of 2PPD x 40Y Second hand smoke exposure: No Alcohol intake: never Substance/Drug Use: never Lives independently: Yes Household members: spouse Marital status: Current occupational status: retired Do you think of yourself as: Straight/Heterosexual Current gender identity: Male Data Anesthesia Cardiac Studies: No Data to Display
[2024-10-31 06:24] VITALS: BP 142/84
[2024-10-31 06:25] LABS: Glucose Point of Care 118 mg/dL (70-110)
[2024-10-31] MEDS: sodium chloride 0.9% 1,000 ML 30 ML IV (06:42)
[2024-10-31 07:34] VITALS: BP 118/80; PULSE 97; RESP 18; TEMP 36.2; O2SAT 90
[2024-10-31 07:43] VITALS: BP 115/85; PULSE 90; RESP 18; TEMP 36.2; O2SAT 93
--- NOTE | 2024-10-31 07:50 | ANE.PACU2 ---
Inpatient post-anesthesia follow up: Airway intact: Yes Vital signs: Temperature 97.2 F Pulse Rate 90 Respiratory Rate 18 Blood Pressure 115/85 Pulse Oximetry 93 Oxygen Delivery Me thod Room Air Oxygen Flow Rate Fraction of Inspir ed Oxygen Hydration adequate: Yes Nausea and vomiting: No Pain level: 1 Mental status: Baseline
== END 2024-10-31 07:56 | disposition home or self-care (01) ==
PROVIDERS: PCP Electrodiagnostic Medicine; Visit Provider Surgery
PROC: 0DJD8ZZ Inspection of Lower Intestinal Tract, Via Natural or Artificial Opening Endoscopic (ICD-10-PCS; CPT 45378; principal; 2024-10-31 07:00)
DX: Z12.11 Encounter for screening for malignant neoplasm of colon (principal); K57.30 Diverticulosis of large intestine without perforation or abscess without bleeding; K63.5 Polyp of colon; K62.1 Rectal polyp; K64.8 Other hemorrhoids; J44.9 Chronic obstructive pulmonary disease, unspecified; E11.9 Type 2 diabetes mellitus without complications; K21.9 Gastro-esophageal reflux disease without esophagitis; M06.9 Rheumatoid arthritis, unspecified; M19.90 Unspecified osteoarthritis, unspecified site; Z79.899 Other long term (current) drug therapy; Z79.84 Long term (current) use of oral hypoglycemic drugs; Z88.2 Allergy status to sulfonamides; Z88.5 Allergy status to narcotic agent; E78.5 Hyperlipidemia, unspecified; Z87.891 Personal history of nicotine dependence
CPT/HCPCS: 36416; 45385; 82962; 88305; J2371; J2704; J7030

== ENCOUNTER → 2024-11-12 08:20 | Outpatient (BNVA) | payer OTHER, SELFPAY | PROVIDERS: PCP Electrodiagnostic Medicine; Visit Provider Surgery | DX: Z09 Encounter for follow-up examination after completed treatment for conditions other than malignant neoplasm (principal) | CPT/HCPCS: 99213 ==

== ENCOUNTER → 2025-02-10 12:58 | Outpatient (BNVA) | payer OTHER, SELFPAY | PROVIDERS: PCP Electrodiagnostic Medicine; Visit Provider Internal Medicine | DX: R06.09 Other forms of dyspnea (principal); E11.9 Type 2 diabetes mellitus without complications; Z79.84 Long term (current) use of oral hypoglycemic drugs; Z87.891 Personal history of nicotine dependence; R07.9 Chest pain, unspecified | CPT/HCPCS: 93005; 99204 ==

== ENCOUNTER → 2025-02-10 13:21 | Outpatient (BNVA) | payer OTHER, SELFPAY | PROVIDERS: PCP Electrodiagnostic Medicine; Visit Provider Internal Medicine | DX: R00.2 Palpitations (principal); I49.8 Other specified cardiac arrhythmias; I49.3 Ventricular premature depolarization; I49.1 Atrial premature depolarization; R00.0 Tachycardia, unspecified | CPT/HCPCS: 93242 ==

== ENCOUNTER → 2025-03-18 08:55 | Outpatient (BNVA) | payer OTHER, SELFPAY | PROVIDERS: PCP Electrodiagnostic Medicine; Visit Provider Nurse Practitioner Family | DX: L57.8 Other skin changes due to chronic exposure to nonionizing radiation (principal); L82.1 Other seborrheic keratosis; X32.XXXA Exposure to sunlight, initial encounter; L81.4 Other melanin hyperpigmentation; D18.01 Hemangioma of skin and subcutaneous tissue; L73.8 Other specified follicular disorders; Z08 Encounter for follow-up examination after completed treatment for malignant neoplasm; Z85.828 Personal history of other malignant neoplasm of skin; S10.86XA Insect bite of other specified part of neck, initial encounter; L57.0 Actinic keratosis; X58.XXXA Exposure to other specified factors, initial encounter | CPT/HCPCS: 10120; 17000; 99213 ==

== ENCOUNTER 2025-03-21 08:29 | Outpatient (CLI) | payer OTHER, SELFPAY ==
--- NOTE | 2025-03-21 08:30 | USCV_ITS ---
Aron Pond Age: 74 Gender: M : 1950 Exam Date: 03/21/2025 09:24 Ordering Phys: Goran Garcia M.D ([email or web address]) Technologist: Clemente Cesar Exam Location: [facility] Indication: sob BP: 129 / 76 HR: 78 Rhythm: Sinus Technical Quality: Adequate MEASUREMENTS (Male / Female) Normal Values 2D ECHO LV Diastolic Diameter PLAX 4.4 cm 4.2 - 5.9 / 3.9 - 5.3 cm IVS Diastolic Thickness 1.3 cm 0.6 - 1.0 / 0.6 - 0.9 cm IVS Systolic Thickness 1.2 cm LVPW Diastolic Thickness 1.4 cm 0.6 - 1.0 / 0.6 - 0.9 cm LVPW Systolic Thickness 2.0 cm LVOT Diameter 2.1 cm LV Ejection Fraction 2D Teich 57.1 % LV Ejection Fraction MOD 4C 66.7 % LV Ejection Fraction MOD 2C 75.8 % LV Ejection Fraction 2C AL 75.9 % LA Diameter 3.5 cm RA Systolic Volume 4C AL 25.8 ml RA Systolic Volume 4C MOD 25.7 ml LA Sys Volume AL 33.5 cm cubed LA Sys Volume Index AL 15.0 cm cubed/m squared Aorta at Sinotubular Diameter 2.8 cm IVC Diameter 2.0 cm M-MODE LA Ao Ratio MM 1.1 AV Cusp Separation MM 1.9 cm DOPPLER AV Peak Velocity 141.7 cm/s LVOT Peak Velocity 101.0 cm/s AV Area Cont Eq vti 2.7 cm squared AV Area Cont Eq pk 2.5 cm squared MV Peak Velocity 112.0 cm/s MV Area PHT 6.5 cm squared Mitral E to A Ratio 0.6 TV Peak Velocity 349.5 cm/s TR Peak Velocity 448.0 cm/s TR Peak Gradient 80.3 mmHg TR Mean Velocity 328.0 cm/s TR Mean Gradient 46.7 mmHg TR Velocity Time Integral 87.4 cm PV Peak Velocity 86.0 cm/s RV Ejection Time 0.3 s FINDINGS Left Ventricle Left ventricle is normal in size. LV systolic function is normal with EF of 55-60%. No regional wall motion abnormalities are seen. Grade 1 diastolic dysfunction. Right Ventricle Normal in size and function Right Atrium Normal in size Left Atrium Normal in size Mitral Valve Structurally normal mitral valve. Mild mitral regurgitation Aortic Valve Aortic valve is thickened. No significant stenosis. Trace aortic regurgitation. Tricuspid Valve Mild tricuspid regurgitation. Insufficient TR jet to evaluate RVSP Pulmonic Valve Not well visualized Pericardium Normal Aorta Normal in size IVC Appears to be normal CONCLUSIONS LV systolic function is normal with EF of 55- 60%. Grade 1 diastolic dysfunction. Mild mitral regurgitation. Trace aortic regurgitation Mild tricuspid regurgitation No comparison studies are available Goran Garcia MD (Electronically Signed) Final Date: 21 March 2025 11:11 S
== END 2025-03-21 08:30 | disposition home or self-care (01) ==
LOC: RAD 08:30
PROVIDERS: PCP Electrodiagnostic Medicine; Visit Provider Internal Medicine
DX: R06.02 Shortness of breath (principal); R93.1 Abnormal findings on diagnostic imaging of heart and coronary circulation; I34.0 Nonrheumatic mitral (valve) insufficiency; I35.8 Other nonrheumatic aortic valve disorders; I07.1 Rheumatic tricuspid insufficiency
CPT/HCPCS: 93306

== ENCOUNTER → 2025-04-14 13:39 | Outpatient (BNVA) | payer OTHER, SELFPAY | PROVIDERS: PCP Electrodiagnostic Medicine; Visit Provider Internal Medicine | DX: R00.2 Palpitations (principal); E11.9 Type 2 diabetes mellitus without complications; R06.09 Other forms of dyspnea; Z79.84 Long term (current) use of oral hypoglycemic drugs | CPT/HCPCS: 99214 ==

== ENCOUNTER → 2025-06-05 09:19 | Outpatient (BNVA) | payer OTHER, SELFPAY | PROVIDERS: PCP Electrodiagnostic Medicine; Visit Provider Nurse Practitioner Family | DX: L57.8 Other skin changes due to chronic exposure to nonionizing radiation (principal); L82.1 Other seborrheic keratosis; D23.5 Other benign neoplasm of skin of trunk; X32.XXXA Exposure to sunlight, initial encounter; L81.4 Other melanin hyperpigmentation; D18.01 Hemangioma of skin and subcutaneous tissue; L73.8 Other specified follicular disorders; Z08 Encounter for follow-up examination after completed treatment for malignant neoplasm; Z85.828 Personal history of other malignant neoplasm of skin; D48.5 Neoplasm of uncertain behavior of skin | CPT/HCPCS: 69100; 99213 ==

== ENCOUNTER → 2025-09-01 08:45 | Outpatient (BNVA) | payer OTHER, SELFPAY | PROVIDERS: PCP Electrodiagnostic Medicine; Visit Provider Nurse Practitioner Family | DX: H61.031 Chondritis of right external ear (principal); S60.032A Contusion of left middle finger without damage to nail, initial encounter; L57.8 Other skin changes due to chronic exposure to nonionizing radiation; L82.1 Other seborrheic keratosis; D18.01 Hemangioma of skin and subcutaneous tissue; Z85.828 Personal history of other malignant neoplasm of skin; L82.0 Inflamed seborrheic keratosis; X58.XXXA Exposure to other specified factors, initial encounter | CPT/HCPCS: 17110; 99213 ==